=== PATIENT | male | born 1950 | race African-American/Black ===

== ENCOUNTER 2024-07-06 13:03 | Inpatient (IN) | payer MEDICARE, OTHER ==
[~2024-07-06] VITALS: Ht 175.3 cm; Wt 99.8 kg
[2024-07-06 13:34] LABS: BASOPHILS % (AUTO) 0.6 % (0.0-2.0); CALCIUM, SERUM 9.5 mg/dL (8.5-10.1); CARBON DIOXIDE 22 mmol/L (21-32); CHLORIDE 108 mmol/L (98-107); CREATININE 1.2 mg/dL (0.6-1.3); EOSINOPHILS # (AUTO) 0.1 K/uL (0.0-0.7); EOSINOPHILS % (AUTO) 1.9 % (0.0-6.0); GLUCOSE 122 mg/dL (74-106); HEMATOCRIT 45 % (39-51); HEMOGLOBIN 13.6 g/dL (13.5-17.5); LYMPHOCYTES # (AUTO) 2.3 K/uL (0.8-4.8); LYMPHOCYTES % (AUTO) 35.9 % (20.0-44.0); MEAN CORPUSCULAR HEMOGLOBIN 26 PG (26.0-33.0); MEAN CORPUSCULAR HGB CONC 30 g/dl (31.0-36.0); MEAN CORPUSCULAR VOLUME 84 fL (80-96); MONOCYTES # (AUTO) 0.7 K/uL (0.1-1.30); MONOCYTES % (AUTO) 10.8 % (2.0-12.0); NEUTROPHILS # (AUTO) 3.2 K/uL (1.8-8.9); NEUTROPHILS % (AUTO) 50.8 % (43.0-81.0); PLATELET COUNT (AUTO) 138 K/uL (150-450); RED BLOOD CELL COUNT(AUTO) 5.33 MIL/uL (4.5-6.0); RED CELL DISTRIBUTION WIDTH 16.1 % (11.5-15.0); SODIUM SERUM 141 mmol/L (136-145); UREA NITROGEN, BLOOD 24 mg/dL (7-18); WHITE BLOOD COUNT (AUTO) 6.3 K/uL (4.3-11.0)
[2024-07-06 13:46] LABS: PLATELET ESTIMATE DECREASED
[2024-07-06 13:47] LABS: ANISOCYTOSIS 1+; HYPOCHROMASIA 1+
[2024-07-06] MEDS ORDERED: ATOR80TA PO (14:55)
[2024-07-06] MEDS ORDERED: TRAZ-182 PO (14:55)
[2024-07-06] MEDS ORDERED: ARIP15TA43 PO (14:55)
[2024-07-06] MEDS ORDERED: METO10TA3 PO (14:55)
[2024-07-06] MEDS ORDERED: CLOT15CR5 TP (14:55)
[2024-07-06] MEDS ORDERED: DICL50TA9 PO (14:55)
[2024-07-06] MEDS ORDERED: PANT40TA2 PO (14:55)
[2024-07-06] MEDS ORDERED: NALO4SPR NS (14:55)
[2024-07-06] MEDS ORDERED: ASPI-1420 PO (14:55)
[2024-07-06] MEDS ORDERED: SPIR25TA6 PO (14:55)
[2024-07-06] MEDS ORDERED: IVAB5TAB PO (14:55)
[2024-07-06] MEDS ORDERED: LINA290C PO (14:55)
[2024-07-06] MEDS ORDERED: DAPA5TAB PO (14:55)
[2024-07-06] MEDS ORDERED: CARV3.122 PO (14:55)
[2024-07-06] MEDS ORDERED: MIDO5TAB4 PO (14:55)
[2024-07-06] MEDS ORDERED: HYDR-3980 PO (14:55)
[2024-07-06 16:00] VITALS: BP 103/79; TEMP 98.6; O2SAT 97
[2024-07-06 20:45] VITALS: BP 142/76; TEMP 98.4; O2SAT 97
[2024-07-06] MEDS: CLOTRIMAZOLE/BETAMETASONE DIPROPIONATE 15 GM TUBE TP SCH (22:00)
[2024-07-06] MEDS ORDERED: NALOXONE HCL 4 MG SPRAY NS PRN (22:00)
[2024-07-06] MEDS: HYDROCODONE/APAP 10/325MG TABLET PO SCH (22:17)
[2024-07-06] MEDS: TRAZODONE 50 MG TABLET PO SCH (22:36)
[2024-07-06] MEDS: ASPIRIN EC 81 MG TABLET.DR PO SCH (22:36)
[2024-07-06] MEDS: METOCLOPRAMIDE HCL 10 MG TABLET PO SCH (22:37)
[2024-07-07 00:39] VITALS: BP 113/86; TEMP 98.4; O2SAT 95
[2024-07-07 05:21] VITALS: BP 128/72; TEMP 98.6; O2SAT 96
[2024-07-07 07:02] LABS: APPEARANCE,URINE CLEAR (CLEAR); BILIRUBIN,URINE NEGATIVE (NEGATIVE); BLOOD, URINE NEGATIVE Ery/uL (NEGATIVE); COLOR,URINE YELLOW (YELLOW); KETONES,URINE 1+ mg/dL (NEGATIVE); LEUKOCYTE ESTERASE ,URINE NEGATIVE (NEGATIVE); NITRITE, URINE NEGATIVE (NEGATIVE); PROTEIN,URINE NEGATIVE (NEGATIVE); UGLUCOSE 2+ mg/dL (NEGATIVE); UROBILINOGEN,URINE 0.2 EU/dL (0.2)
[2024-07-07 07:06] LABS: ADD URINE CULTURE NO; BACTERIA,URINE Rare /HPF (None Seen); RBC,URINE 0-2 /HPF (0-2); SQUAMOUS EPITHELIAL CELL,UR Few /HPF (None Seen); WBC,URINE 0-2 /HPF (0-3)
[2024-07-07 08:00] VITALS: BP 168/100; TEMP 98.6; O2SAT 97
[2024-07-07] MEDS: PANTOPRAZOLE 40 MG TABLET.DR PO SCH (08:30)
[2024-07-07] MEDS: DICLOFENAC SODIUM 25 MG TABLET.DR PO SCH (08:30)
[2024-07-07] MEDS: SPIRONOLACTONE 25 MG TABLET PO SCH (08:30)
[2024-07-07] MEDS: CARVEDILOL 3.125 MG TABLET PO SCH (08:31)
[2024-07-07] MEDS: MIDODRINE HCL (5MG) 5 MG TABLET PO SCH (08:37)
[2024-07-07 10:20] LABS: BASOPHILS # (AUTO) 0.1 K/uL (0.0-0.2); BASOPHILS % (AUTO) 1.1 % (0.0-2.0); EOSINOPHILS # (AUTO) 0.1 K/uL (0.0-0.7); EOSINOPHILS % (AUTO) 1.4 % (0.0-6.0); HEMATOCRIT 44 % (39-51); HEMOGLOBIN 13.3 g/dL (13.5-17.5); LYMPHOCYTES # (AUTO) 1.4 K/uL (0.8-4.8); LYMPHOCYTES % (AUTO) 24.5 % (20.0-44.0); MEAN CORPUSCULAR HEMOGLOBIN 25 PG (26.0-33.0); MEAN CORPUSCULAR HGB CONC 31 g/dl (31.0-36.0); MEAN CORPUSCULAR VOLUME 81 fL (80-96); MONOCYTES % (AUTO) 16.7 % (2.0-12.0); NEUTROPHILS # (AUTO) 3.2 K/uL (1.8-8.9); NEUTROPHILS % (AUTO) 56.3 % (43.0-81.0); PLATELET COUNT (AUTO) 141 K/uL (150-450); RED BLOOD CELL COUNT(AUTO) 5.35 MIL/uL (4.5-6.0); WHITE BLOOD COUNT (AUTO) 5.7 K/uL (4.3-11.0)
[2024-07-07 10:39] LABS: ALANINE AMINOTRANSFERASE 24 U/L (12-78); ALBUMIN 3.1 g/dL (3.4-5.0); ALKALINE PHOSPHATASE 61 U/L (46-116); ASPARTATE AMINOTRANSFERASE 19 U/L (15-37); BILIRUBIN,TOTAL 0.8 mg/dL (0.2-1.0); CALCIUM, SERUM 9.5 mg/dL (8.5-10.1); CARBON DIOXIDE 25 mmol/L (21-32); CHLORIDE 106 mmol/L (98-107); GLUCOSE 99 mg/dL (74-106); POTASSIUM 4.1 mmol/L (3.5-5.1); SODIUM SERUM 139 mmol/L (136-145); TOTAL PROTEIN, SERUM 6.5 g/dL (6.4-8.2); UREA NITROGEN, BLOOD 17 mg/dL (7-18)
[2024-07-07 11:21] LABS: THYROID STIMULATING HORMONE 1.48 uIU/mL (0.358-3.74)
[2024-07-07 12:00] VITALS: BP 144/100; TEMP 99.1; O2SAT 98
[2024-07-07] MEDS: hydrALAZINE HCL 50 MG TABLET PO SCH (12:19)
[2024-07-07] MEDS: METOPROLOL TARTRATE 50 MG TABLET PO SCH (12:20)
[2024-07-07 16:00] VITALS: BP 105/66; TEMP 98.4; O2SAT 100
[2024-07-07 20:00] VITALS: BP 112/91; TEMP 98.5; O2SAT 98
[2024-07-07] MEDS: ATORVASTATIN 40 MG TABLET PO SCH (21:05)
[2024-07-08] MEDS: ACETAMINOPHEN 325 MG TABLET PO PRN (00:10)
[2024-07-08 01:11] VITALS: BP 103/83; TEMP 98.2; O2SAT 97
[2024-07-08 04:00] VITALS: BP 116/85; TEMP 98.2; O2SAT 96
[2024-07-08 08:00] VITALS: BP 112/70; TEMP 98.1; O2SAT 98
[2024-07-08 16:13] VITALS: BP 122/91; TEMP 98.2; O2SAT 96
[2024-07-08 19:54] VITALS: BP 125/84; TEMP 98.6; O2SAT 97
[2024-07-08 20:00] VITALS: BP 125/84; TEMP 98.6; O2SAT 97
[2024-07-09] VITALS (7 sets, daily range): BP systolic 108–125; BP diastolic 53–95; TEMP 98.2–98.6; O2SAT 94–99
[2024-07-09] MEDS ORDERED: IOHEXOL-350 100 ML VIAL IV ONE (14:59)
[2024-07-09] MEDS ORDERED: NITROGLYCERIN 0.4 MG/TAB BOTTLE ONE (14:59)
[2024-07-09] MEDS ORDERED: CT SWABBABLE VALVE TRANS SET 1 EA INFUS.SET MC ONE (15:00)
[2024-07-09] MEDS ORDERED: METOPROLOL TARTRATE INJ 5 MG/5 ML AMPUL ONE (15:00)
[2024-07-09] MEDS ORDERED: IV NS 0.9% 250 ML IV ONE (15:00)
[2024-07-09] MEDS: METOPROLOL TARTRATE INJ 5 MG/5 ML AMPUL IVP PRN (15:05)
[2024-07-09] MEDS ORDERED: NITROGLYCERIN 0.4 MG/TAB BOTTLE SL ONE (15:30)
[2024-07-10] VITALS: BP 103/70; TEMP 98.2; O2SAT 96
[2024-07-10 04:00] VITALS: BP 98/74; TEMP 98.2; O2SAT 98
[2024-07-10 08:00] VITALS: BP 131/67; TEMP 98.2; O2SAT 98
[2024-07-10 16:00] VITALS: BP 98/62; TEMP 98.8; O2SAT 97
[2024-07-10 20:21] VITALS: BP 123/71; TEMP 98.2; O2SAT 96
[2024-07-11 08:51] VITALS: BP 120/90; TEMP 98.2; O2SAT 96
[2024-07-11 11:35] VITALS: BP 148/95
== END 2024-07-11 12:10 | DRG 303 ==
LOC: ER 13:06 → TELE 15:21 → MED 07-10 11:41
PROVIDERS: ADMIT Hospitalist; ATTEND Hospitalist
DX: I25.10 Atherosclerotic heart disease of native coronary artery without angina pectoris (principal); J44.9 Chronic obstructive pulmonary disease, unspecified; G47.33 Obstructive sleep apnea (adult) (pediatric); E78.5 Hyperlipidemia, unspecified; F29 Unspecified psychosis not due to a substance or known physiological condition; Z87.891 Personal history of nicotine dependence; Z79.899 Other long term (current) drug therapy; I50.9 Heart failure, unspecified; Z79.82 Long term (current) use of aspirin; I11.0 Hypertensive heart disease with heart failure; G89.4 Chronic pain syndrome; E66.01 Morbid (severe) obesity due to excess calories; Z68.32 Body mass index [BMI] 32.0-32.9, adult
CPT/HCPCS: 36415; 71045-TC; 75574; 80048-TC; 80053-TC; 80061-TC; 81001; 84439-TC; 84443-TC; 84484-TC; 85025-TC; 87081-TC; 87086-TC; 97112-TC; 97116-TC; 97530-TC; G0378; J3490; J7050; J8597; Q9967